=== PATIENT | male | born 1975 | race Caucasian/White ===

== ENCOUNTER 2023-10-12 18:06 | Emergency (ER) | payer OTHER ==
[~2023-10-12] VITALS: Ht 177.8 cm; Wt 91.0 kg
[2023-10-12] MEDS ORDERED: BENZ7GEL8 PO (18:32)
[2023-10-12] MEDS ORDERED: AMOX-117 PO (18:32)
[2023-10-12 18:51] VITALS: BP 134/78; PULSE 88; RESP 18; TEMP 98.2; O2SAT 99
== END 2023-10-12 18:55 | disposition home or self-care (01) ==
LOC: ER 18:07
DX: K04.7 Periapical abscess without sinus (principal); K02.9 Dental caries, unspecified
CPT/HCPCS: 99283

== ENCOUNTER 2023-10-14 20:55 | Emergency (ER) | payer MEDICAID, OTHER ==
[~2023-10-14 20:55] MED LIST: AMOX-117 PO; BENZ7GEL8 PO
[2023-10-14] MEDS ORDERED: BENZ7GEL8 DT (21:48)
== END 2023-10-14 22:10 | disposition left against medical advice (07) ==
LOC: ER 20:55
DX: K04.7 Periapical abscess without sinus (principal); K08.89 Other specified disorders of teeth and supporting structures; Z79.2 Long term (current) use of antibiotics; Z79.899 Other long term (current) drug therapy
CPT/HCPCS: 99283

== ENCOUNTER 2023-10-17 11:27 | Emergency (ER) | payer MEDICAID ==
[~2023-10-17] VITALS: Ht 177.8 cm; Wt 87.0 kg
[~2023-10-17 11:27] MED LIST changes: +BENZ7GEL8 DT
[2023-10-17 11:31] VITALS: BP 128/68; PULSE 99; TEMP 98.2; O2SAT 95
[2023-10-17] MEDS ORDERED: DIME118C3 TOP (12:23)
[2023-10-17] MEDS ORDERED: NAPR-56 PO (12:23)
[2023-10-17] MEDS: TETanus/Pertussis (Acell)/Diphther VAC/PF (Tdap-Adult) 0.5ml syringe IMVAC ONE (12:32)
[2023-10-17] MEDS: bacitracin 15gm ointment TP ONE (12:32)
[2023-10-17 12:34] VITALS: RESP 20
== END 2023-10-17 12:35 | disposition home or self-care (01) ==
LOC: ER 11:27
DX: M79.671 Pain in right foot (principal); M79.672 Pain in left foot; Z79.1 Long term (current) use of non-steroidal anti-inflammatories (NSAID); Z79.899 Other long term (current) drug therapy
CPT/HCPCS: 99282